=== PATIENT | female | born 1945 | race American Indian/Alaskan Native ===

== ENCOUNTER 2016-11-28 08:54 | Day surgery (SDC) | payer MEDICARE ==
[2016-11-28 09:27] VITALS: BMI 32.4
[2016-11-28] MEDS ORDERED: Lidocaine Hydrochloride 5 ML INJ ONE (10:43)
[2016-11-28] MEDS ORDERED: Propofol 10 mg/ml Inj (20 ML) ONE ×2 (10:43→11:11)
[2016-11-28] MEDS ORDERED: Lactated Ringer's 1,000 ML IV ONE (11:00)
--- NOTE | 2016-11-28 11:00 | CP.SDSHP ---
Same Day Surgery H & P - History Proposed Procedure: EGD and Colonoscopy Pre-Op Diagnosis: Iron deficiency anemia - Previous Medical/Surgical History Cardiac: Hypertension Endocrine/Metabolic: Diabetes Previous Surgical History: AIDA. Optho surgery - Allergies Allergies: Allergies No Known Allergies Allergy (Verified 11/28/16 09:19) - Current Medications Current Medications: reviewed, per reconciliation - Physical Exam General Appearance: wdwn nad Vital Signs: Vital Signs 11/28/16 09:27 Temperature 97.5 F L Pulse Rate 59 L Respiratory 18 Rate Blood Pressure 132/69 O2 Sat by Pulse 98 Oximetry Mental Status: Alert & Oriented x3 Heart: WNL Lungs: WNL - {Optional Preform as Required} Abdomen: WNL - Impression Impression: iron deficiency anemia Pt. Evaluated Today:Candidate for Anesthesia & Procedure: Yes - Date & Time Date: 11/28/16 Time: 11:00 Short Stay Discharge - Short Stay Discharge Admitting Diagnosis/Reason for Visit: ANEMIA Disposition: HOME/ ROUTINE
[2016-11-28 11:48] VITALS: TEMP 97.2
[2016-11-28 12:01] VITALS: O2SAT 100
[2016-11-28 12:41] VITALS: BP 129/68; PULSE 68; RESP 16
== END 2016-11-28 12:38 | disposition home or self-care (01) ==
LOC: C.ENDO 08:54
PROVIDERS: ATTEND Internal Medicine Gastroenterology
DX: D50.9 Iron deficiency anemia, unspecified (principal); K57.30 Diverticulosis of large intestine without perforation or abscess without bleeding; K64.8 Other hemorrhoids; K44.9 Diaphragmatic hernia without obstruction or gangrene
CPT/HCPCS: 43239; 45378; 82948; 88305; J2704; J7120